=== PATIENT | female | born 1955 | race Caucasian/White ===

== ENCOUNTER 2021-05-16 11:19 | Emergency (ER) | payer OTHER, SELFPAY ==
[2021-05-16 12:00] VITALS: BP 127/77; PULSE 76; RESP 16; TEMP 36.6; O2SAT 98; BMI 23.0
[2021-05-16 12:20] LABS: MANUAL DIFF FLAG NO
[2021-05-16 12:22] LABS: Basophils Absolute Auto 0.1 X10*3/uL (0.0-0.2); Basophils Percent Auto 0.8 % (0-2); Eosinophils Absolute Auto 0.3 X10*3/uL (0.0-0.4); Hematocrit 38.5 % (37-47); Hemoglobin 12.9 g/dl (12.0-16.0); Imm Gran Abs Auto 0.03 X10*3/uL (0.00-0.03); Imm Gran Pct Auto 0.4 % (0.0-0.4); Lymphocytes Absolute Auto 2.3 X10*3/uL (1.2-4.9); Mean Corpuscular HGB Conc 33.5 g/dl (31.0-35.0); Mean Corpuscular Hemoglobin 31.8 pg (27.0-33.0); Mean Corpuscular Volume 94.8 fL (80-98); Monocytes Absolute Auto 0.8 X10*3/uL (0.1-1.2); Monocytes Percent Auto 11.5 % (2-11); Neutrophils Absolute Auto 3.6 X10*3/uL (2.0-8.3); Neutrophils Percent Auto 50.3 % (45-73); Platelet Count 328 X10*3/uL (160-400); Red Blood Count 4.06 X10*6/uL (4.20-5.50); White Blood Count 7.1 X10*3/uL (4.8-10.8)
[2021-05-16 12:58] LABS: Alanine Aminotransferase 21 U/L (0-31); Albumin Level 4.7 g/dL (3.5-5.0); Alkaline Phosphatase 67 U/L (39-117); Anion Gap 12 (12-20); Aspartate Amino Transferase 19 U/L (5-31); Bilirubin Direct 0.2 mg/dL (0.0-0.5); Bilirubin Total 0.5 mg/dL (0.0-1.0); Blood Urea Nitrogen 20 mg/dL (9-16); Carbon Dioxide 28 mmol/L (22-29); Chloride 105 mmol/L (96-108); Creatinine Clr Calc Pharmacy 59.5; Estimated Glomerular Filt Rate > 60; Glucose Random 56 mg/dL (60-115); Potassium 4.4 mmol/L (3.3-5.1); Sodium 141 mmol/L (135-145); Total Protein 8.1 g/dL (6.5-8.0)
[2021-05-16 13:00] LABS: Calcium 11.3 mg/dL (8.4-10.2)
--- NOTE | 2021-05-16 13:09 | PC.NURSE ---
pt with BG of 57 brouth to ed 11 iv started jucie given provider at bedside
--- NOTE | 2021-05-16 13:23 | ED_ITS ---
HPI - GI Bleed General Chief complaint: GI Bleed Stated complaint: rectal bleeding Time Seen by Provider: 05/16/21 13:08 Source: patient and family Mode of arrival: ambulatory Limitations: no limitations History of Present Illness HPI Narrative: 65 y/o female with history of DM, gastritis who presents to the ER with 3 episodes of blood on the toilet paper after a bowel movement this morning. She has been constipated and straining to have a bowel movement. She reports small amounts of bright red blood on the paper, none in the toilet bowl or in the stool. No black stool. She denies abdominal pain but reports some epigastric discomfort related to her gastritis. She did not eat lunch. She has never had any GI bleeding in the past. She is not on blood thinners or aspirin. She denies dizziness, lightheadedness, SOB or chest pain. MD complaint: blood on toilet paper Onset (ago): hour(s) Pain Consistency: intermittent and now resolved Severity: mild Relieving factors: none Exacerbating factors: none Associated symptoms: abdominal pain (epigastric discomfort, hunger) Treatments Prior to Arrival: none Related Data Previous Rx's Medication Instructions Recorded docusate sodium [Colace] 100 mg PO BID #30 cap 05/16/21 hydrocortisone-pramoxine 1 appl FL QID PRN #10 g 05/16/21 [Proctofoam HC] polyethylene glycol 3350 [Miralax] 17 g PO DAILY #30 ea 05/16/21 Allergies Allergy/AdvReac Type Severity Reaction Status Date / Time No Known Allergies Allergy Verified 05/16/21 11:59 Review of Systems Review of Systems: Constitutional: No Fever, No Chills ENT/Mouth: No sore throat, No Rhinorrhea, No Swallowing Difficulty Cardiovascular: No Chest Pain, No SOB, No Orthopnea, No Edema Respiratory: No Cough, No Sputum, No Wheezing, No dyspnea Gastrointestinal: No Nausea, No Vomiting, No Diarrhea, + abdominal Pain, No He matochezia, No Melena, + Constipation Genitourinary: No Dysuria, No Urinary Frequency, No Hematuria Musculoskeletal: No joint pain, No Myalgias Skin: No Skin Lesions, No rash Neuro: No Weakness, No Numbness, No Dizziness, No Headache Psych: No Anxiety/Panic, No Depression Heme/Lymph: No Bruising, No Lymphadenopathy Endocrine: No Polyuria, No Polydipsia [facility] Past Medical History Attestation statement: The following information was validated with the patient. Medical History Diabetes Gastritis GERD (gastroesophageal reflux disease) HTN (hypertension) Hyperlipidemia Social History Social History Advance Directives: Yes Advance Directives Information Provided: Yes Advance Directives on File: No Physical Exam Vital Signs: Vital Signs: Last Vital Signs Temp 98.5 F 05/16/21 13:41 Pulse 68 05/16/21 13:41 Resp 16 05/16/21 13:41 BP 117/68 05/16/21 13:41 Pulse Ox 97 05/16/21 13:41 Body Mass Index 23.0 Appearance: Alert. Oriented X3. No acute distress. Eyes: Pupils equal, round and reactive to light. ENT: Pharynx normal. Neck: Normal inspection. Neck supple. CVS: Normal heart rate and rhythm. Pulses normal. Respiratory: No respiratory distress. Breath sounds normal. Abdomen: Soft and nontender. +BS x4 VARUN: normal inspection, small palpable internal hemorrhoid without active ble eding. non-tender, normal tone Skin: Skin warm and dry. Normal skin color. Normal skin turgor. No rashes. Extremities: No lower extremity edema. Neuro: Oriented X 3. No motor deficit. No sensory deficit. Course Course Course Narrative: 65 y/o female presenting with blood on the toilet paper x3 this morning in the setting of constipation. H/H are 12.9/38.5. Small internal hemorrhoid palpable without active bleeding. Glucose noted to be 55, given juice with improvement to 80's. She did not eat lunch. She is not altered or confused. Her calcium was incidentally found to be 11.3 with a normal albumin. BUN slightly elevated, question due to mild dehydration. She has no systemic symptoms of hypercalcemia. Will plan to have her get her labs re-checked by her PCP in 3-5 days after she adequately hydrates at home. Patient and daughter agree with plan and warning signs discussed to prompt urgent re-evaluation. Case d/w Dr. Jha. German for d/c home. MDM - GI Bleed Lab Data Result diagrams: 05/16/21 12:11 05/16/21 12:11 Labs: Lab Results 06/05/16/21 05/16/21 Range/Units 12:11 12:11 13:39 WBC 7.1 (4.8-10.8) X10*3/uL RBC 4.06 L (4.20-5.50) X10*6/uL Hgb 12.9 (12.0-16.0) g/dl Hct 38.5 (37-47) % MCV 94.8 (80-98) fL MCH 31.8 (27.0-33.0) pg MCHC 33.5 (31.0-35.0) g/dl RDW 12.0 (11.0-16.0) % Plt Count 328 (160-400) X10*3/uL MPV 10.0 (9.4-12.3) fL Immature Gran % (Auto) 0.4 (0.0-0.4) % Neut % (Auto) 50.3 (45-73) % Lymph % (Auto) 33.0 (20-40) % Brantley % (Auto) 11.5 H (2-11) % Eos % (Auto) 4.0 (0-4) % Baso % (Auto) 0.8 (0-2) % Lymph # (Auto) 2.3 (1.2-4.9) X10*3/uL Brantley # (Auto) 0.8 (0.1-1.2) X10*3/uL Eos # (Auto) 0.3 (0.0-0.4) X10*3/uL Baso # (Auto) 0.1 (0.0-0.2) X10*3/uL Abs Immat Gran (auto) 0.03 (0.00-0.03) X10*3/uL Absolute Neuts (auto) 3.6 (2.0-8.3) X10*3/uL Absolute Nucleated RBC 0.000 (0.0-0.012) X10*3/uL Nucleated RBC % (auto) 0.0 (0.0-0.2) /100WBC Sodium 141 (135-145) mmol/L Potassium 4.4 (3.3-5.1) mmol/L Chloride 105 (96-108) mmol/L Carbon Dioxide 28 (22-29) mmol/L Anion Gap 12 (12-20) BUN 20 H (9-16) mg/dL Creatinine 0.79 (0.5-1.4) mg/dL Estim Creat Clear Calc 59.5 Estimated GFR > 60 POC Glucose 84 (60-115) mg/dL Random Glucose 56 L* (60-115) mg/dL Calcium 11.3 H (8.4-10.2) mg/dL Total Bilirubin 0.5 (0.0-1.0) mg/dL Direct Bilirubin 0.2 (0.0-0.5) mg/dL AST 19 (5-31) U/L ALT 21 (0-31) U/L Alkaline Phosphatase 67 (39-117) U/L Total Protein 8.1 H (6.5-8.0) g/dL Albumin 4.7 (3.5-5.0) g/dL Discharge Plan Discharge Clinical Impression: Hypercalcemia Hemorrhoids Qualifiers: Hemorrhoid type: unspecified Qualified Code(s): K64.9 - Unspecified hemorrhoids Patient Disposition: Home, Self-Care Instructions: Hemorrhoids (ED), Hypercalcemia (ED) Additional Instructions: Your bleeding is most likely from a small hemorrhoid. Use the prescribed cream as directed for this. Increase your water intake. Recommend starting Miralax and Colace to help treat constipation - constipation can cause hemorrhoids and bleeding Recommend following up with GI doctor. Your calcium level was mildly elevated, this can be due to mild dehydration Recommend following up with your doctor in 3-5 days for repeat blood work If you develop worsening bleeding or any other concerning symptoms come back to the ER for further evaluation. Prescriptions: New Proctofoam HC 1-1 % foam 1 appl FL QID PRN (Reason: hemorrhoids) Qty: 10 RF: 0 polyethylene glycol 3350 [Miralax] 17 gram powder in packet 17 g PO DAILY Qty: 30 RF: 0 docusate sodium [Colace] 100 mg capsule 100 mg PO BID Qty: 30 RF: 0 Referrals: Roland Greene [Physician] - 1 week (rectal bleeding) Print Language: [place]
[2021-05-16 13:41] VITALS: BP 117/68; PULSE 68; RESP 16; TEMP 36.9; O2SAT 97
--- NOTE | 2021-05-16 13:41 | PC.NURSE ---
RN aware POC 85
[2021-05-16 13:46] LABS: Glucose, Whole Blood 84 mg/dL (60-115)
== END 2021-05-16 14:17 | disposition home or self-care (01) ==
PROVIDERS: Emergency Provider Emergency Medicine
DX: K64.9 Unspecified hemorrhoids (principal); E83.52 Hypercalcemia; E11.9 Type 2 diabetes mellitus without complications; I10 Essential (primary) hypertension; E78.5 Hyperlipidemia, unspecified
CPT/HCPCS: 36415; 80048; 80076; 82947; 85025; 99283; 99284